=== PATIENT | female | born 1960 | race Caucasian/White ===

== ENCOUNTER 2021-09-06 22:36 | Outpatient (RCR) | payer MEDICAID, SELFPAY ==
[2021-08-30 23:34] LABS: Slide Review Reflex No
[2021-08-30 23:37] LABS: Hematocrit 41.3 % (33.0-51.0); Hemoglobin* 12.7 gm/dL (12.0-16.0); Mean Corpuscular HGB Conc 31 gm/dL (32-36); Mean Corpuscular Hemoglobin 33 pg (26-34); Mean Corpuscular Volume 108 fL (80-100); Platelet Count* 553 K/uL (140-440); Red Blood Count 3.81 m/uL (4.00-5.20); White Blood Count* 11.11 K/uL (4.50-11.00)
[2021-08-30 23:59] LABS: INR 1.52 (0.91-1.10); Prothrombin Time 18.7 Seconds
[2021-09-06 22:55] LABS: Hematocrit 41.7 % (33.0-51.0); Hemoglobin* 13.2 gm/dL (12.0-16.0); Mean Corpuscular HGB Conc 32 gm/dL (32-36); Mean Corpuscular Hemoglobin 33 pg (26-34); Mean Corpuscular Volume 104 fL (80-100); Neutrophils Percent Auto 64.9 % (42.0-72.0); Platelet Count* 477 K/uL (140-440); RDW Coefficient of Variation % 12.6 % (11.5-15.5); Red Blood Count 4.01 m/uL (4.00-5.20)
[2021-09-06 22:56] LABS: Basophils Absolute Auto 0.06 K/uL (0.00-0.30); Basophils Percent Auto 0.6 % (0.0-3.0); Eosinophils Absolute Auto 0.06 K/uL (0.00-0.50); Eosinophils Percent Auto 0.6 % (0.0-7.0); Immature Granulocytes Abs Auto 0.04 K/uL (0.00-0.30); Lymphocytes Absolute Auto 2.84 K/uL (0.90-2.90); Lymphocytes Percent Auto 26.3 % (20-44); Monocytes Percent Auto 7.2 % (0.0-11.0); Neutrophils Absolute Auto 7.02 K/uL (1.7-7.0)
[2021-09-06 22:57] LABS: INR 1.56 (0.91-1.10); Prothrombin Time 19.1 Seconds
[2021-09-06 22:58] LABS: Slide Review Reflex No
== END 2022-09-01 23:00 | disposition home or self-care (01) ==
LOC: NPINS 22:36
PROVIDERS: PCP Physician Assistant Medical; Visit Provider Physician Assistant Medical
DX: I26.99 Other pulmonary embolism without acute cor pulmonale (principal)
CPT/HCPCS: 85025; 85027; 85610

== ENCOUNTER 2021-09-09 17:18 | Outpatient (RCR) | payer MEDICAID, SELFPAY ==
[2021-09-09 19:54] LABS: Hematocrit 41.1 % (33.0-51.0); Hemoglobin* 12.7 gm/dL (12.0-16.0); Mean Corpuscular HGB Conc 31 gm/dL (32-36); Mean Corpuscular Hemoglobin 33 pg (26-34); Mean Corpuscular Volume 106 fL (80-100); Platelet Count* 469 K/uL (140-440); Red Blood Count 3.89 m/uL (4.00-5.20); White Blood Count* 8.36 K/uL (4.50-11.00)
[2021-09-09 19:58] LABS: Prothrombin Time 23.1 Seconds
[2021-09-09 20:06] LABS: Slide Review Reflex No
[2021-09-13 14:03] LABS: Hematocrit 44.6 % (33.0-51.0); Hemoglobin* 13.9 gm/dL (12.0-16.0); Mean Corpuscular HGB Conc 31 gm/dL (32-36); Mean Corpuscular Hemoglobin 33 pg (26-34); Mean Corpuscular Volume 105 fL (80-100); Platelet Count* 482 K/uL (140-440); Red Blood Count 4.26 m/uL (4.00-5.20); White Blood Count* 8.99 K/uL (4.50-11.00)
[2021-09-13 14:05] LABS: INR 2.03 (0.91-1.10); Prothrombin Time 23.4 Seconds
[2021-09-13 14:12] LABS: Slide Review Reflex No
== END 2022-09-01 23:00 | disposition home or self-care (01) ==
LOC: LAB 17:18
PROVIDERS: PCP Physician Assistant Medical; Visit Provider Physician Assistant Medical
DX: I26.99 Other pulmonary embolism without acute cor pulmonale (principal)
CPT/HCPCS: 36415; 85027; 85610

== ENCOUNTER 2022-09-04 12:11 | Outpatient (RCR) | payer BC, SELFPAY | END 2023-09-02 08:10 | disposition home or self-care (01) | LOC: LAB 12:11 | PROVIDERS: PCP Physician Assistant Medical; Visit Provider Physician Assistant Medical | DX: I26.99 Other pulmonary embolism without acute cor pulmonale (principal); Z51.89 Encounter for other specified aftercare ==